=== PATIENT | female | born 1965 | race Caucasian/White ===

== ENCOUNTER 2018-07-17 11:33 | Inpatient (IN) | payer SELFPAY ==
[~2018-07-17] VITALS: Ht 162.6 cm; Wt 50.0 kg
--- NOTE | ~2018-07-17 | EKG ---
[place], [place] ELECTROCARDIOGRAM REPORT NAME: NATI TAMAYO UNIT #: [id number] ROOM: 518 DOCTOR: TELMA DRAFT REPORT BIRTHDATE: [birth year] [facility] Test Date: 2018-07-17 Test Time: 15:16:27 Pat Name: NATI TAMAYO Department: Room: 518 Gender: F Boat Repairer: IGGY : 1965 Requested By: ERIKA TOLENTINO Order Number: [id number] Reading MD: Mariano Abdi MD Measurements Intervals [place] Rate: 49 P: 18 RI: 147 QRS: 17 QRSD: 72 T: 37 QT: 474 QTc: 428 Interpretive Statements Sinus bradycardia Probable left atrial enlargement Electronically Signed On 07-21-2018 4:59:41 PDT by Mariano Abdi MD CM:EKGRPT:ELECTROCARDIOGRAM REPORT [id number] ERIKA HOLLIS DRAFT REPORT ERIKA TOLENTINO MD
--- NOTE | ~2018-07-17 | CON ---
[place], [place] REPORT OF CONSULTATION NAME: NATI TAMAYO UNIT #: [id number] ROOM: 518 DOCTOR: ELIZ CLAROS MD BIRTHDATE: [birth year] DOS: 07/17/2018 HISTORY OF PRESENT ILLNESS: This is a 53-year-old [place] woman with history of anxiety, palpitation, and cocaine abuse, who has never had a heart attack, heart failure, COPD, stroke, cancer, or kidney problems. She does have acid reflux problems. She has had urinary bladder repair, hysterectomy, cholecystectomy, pilonidal cyst surgery, and colon resection. She smokes half a pack of cigarettes per day. She presented to the Emergency Department because of chest pain that began 3 days ago, she woke up with this and since then it has not let up, it waxes and wanes, but it has not let up completely when she walks and this pain is not precipitated by activity nor it is made worse if she has it. The pain does not get worse when she takes a deep breath and it is a kind of tight heavy feeling that has penetrated into the back, but not the neck or the shoulders. She has not had any palpitation, dizziness, or loss of consciousness. No swelling of the legs. FAMILY HISTORY: Negative for coronary artery disease or strokes. HOME MEDICATIONS: Includes multivitamins. PHYSICAL EXAMINATION: GENERAL: This is a patient who is slim, healthy looking, alert, oriented. Complexion is fine. There is no finger clubbing. VITAL SIGNS: Pulse is regular at 80 beats per minute and blood pressure 147/85. NECK: JVP normal. AJR is negative. HEART: There are no murmurs or rubs. Good pedal pulses and no edema in lower extremities. RESPIRATORY: Lungs are clear to auscultation and percussion. There is no chest wall tenderness. ABDOMEN: Supple and nontender. LABORATORY DATA: Three ECGs showed normal sinus rhythm and a normal pattern and troponin I levels are also normal. I looked at the echocardiogram while it was being done and she had chest pain at that time, but no regional wall motion abnormalities were identified. This is highly suggestive of her symptoms being noncardiac. IMPRESSION: This patient has chest pain for 3 days with normal troponin levels, normal ECGs, and normal wall motion on an echocardiogram while she had pain, therefore I concluded that this pain is noncardiac and further cardiac workup is not warranted. I thank you on behalf of Dr. Abdi for this consult. [place], [place] REPORT OF CONSULTATION NAME: NATI TAMAYO UNIT #: [id number] ROOM: [facility] DOCTOR: ELIZ CLAROS MD BIRTHDATE: [birth year] ELIZ CLAROS MD CM:CONSTR:REPORT OF CONSULTATION 1745 07/28/18 0829 interface
--- NOTE | ~2018-07-17 | CON ---
[place], [place] REPORT OF CONSULTATION NAME: [id number] UNIT #: [id number] ROOM: 518 DOCTOR: DWAYNE MERCEDES MD BIRTHDATE: [birth year] DOS: 07/17/2018 GASTROENDOSCOPIC CONSULTATION REPORT HISTORY OF PRESENT ILLNESS: A 53-year-old patient who has presented to the Emergency Room with a history of chest pain and periodically noticing blood in toilet tissue. The patient has had a colonoscopy last year. The patient has been a smoker of a pack of cigarettes per day and caffeinated beverages as well as social alcohol consumption. PAST MEDICAL HISTORY: Associated with anxiety, syncopal episode, palpitations periodically. PAST SURGICAL HISTORY: She has had cholecystectomy and she had accidental perforation of her small bowel that had to be resected. She had hysterectomy and then she got complications with her bladder being nicked and bladder was patched. Also, appendectomy and belly tuck. SOCIAL HISTORY: Social alcohol consumer. Nicotine consumer of pack a day. FAMILY HISTORY: Diabetes, coronary artery disease, and hypertension. ALLERGIES: IVP DYE, SULFA, CLINDAMYCIN, LATEX AND PENICILLIN. REVIEW OF SYSTEMS: HEENT: Denies double vision, blurred vision. RESPIRATORY: Some shortness of breath. CARDIOVASCULAR: Atypical chest pain. DIGESTIVE SYSTEM: No hematemesis; however, blood in the stool, periodically. PHYSICAL EXAMINATION: VITAL SIGNS: Stable, nondistressed patient. HEENT: Head normocephalic, nontraumatic. Eyes: Pupils round, reactive. Sclerae nonicteric. Mouth and buccal mucosa benign. Dentures upper in place. No aphthae ulcer, no thrush. NECK: Supple, no thyromegaly, no cervical lymphadenopathy. CHEST: Symmetric anatomy, equal expansion. No wheeze, no rhonchi at the present time. HEART: Normal sinus rhythm, no gallop, no murmur. ABDOMEN: Soft. No hepato-organomegaly. Bowel sounds present. EXTREMITIES: Dry. No cyanosis, no pedal edema. NEUROLOGIC: Alert, oriented to time, place, person. LABORATORY DATA: Reviewed. CBC at the time of admission, white blood cell 8, H and H of 15 and 43. INR 1.0. Comprehensive metabolic panel, electrolyte balanced, GFR greater than 60. Liver function test normal. Troponin normal. Lipase within normal limits. Lactic acid 0.8, normal. IMPRESSION: Atypical chest pain, most likely secondary to bronchospasm secondary to nicotine or reflux. The patient with periodic blood on the stool [place], [place] REPORT OF CONSULTATION NAME: NATI TAMAYO UNIT #: [id number] ROOM: 518 DOCTOR: MAGO THOMAS,DWAYNE BIRTHDATE: [birth year] when she cleanse. She has had a colonoscopy last year. On rectal examination, there was no evidence of any blood on the stool residues. PLAN AND DISCUSSION: Cardiac diet, Protonix 40 mg daily and supportive management for anxiety. There is no acute distress with this patient at this time. OTHER ADJUNCTIVE DIAGNOSES: As dictated in past medical, surgical history. DWAYNE MERCEDES MD CM:CONSTR:REPORT OF CONSULTATION 06 07/22/18 1711 interface
--- NOTE | ~2018-07-17 | EKG ---
[place], [place] ELECTROCARDIOGRAM REPORT NAME: NATI TAMAYO UNIT #: [id number] ROOM: 518 DOCTOR: TELMA DRAFT REPORT BIRTHDATE: [birth year] [facility] Test Date: 2018-07-17 Test Time: 11:39:36 Pat Name: NATI TAMAYO Department: Room: 518 Gender: F New Car Get Ready Mechanic: MALACHI : 1965 Requested By: ERIKA TOLENTINO Order Number: [id number] Reading MD: Mariano Abdi MD Measurements Intervals [place] Rate: 71 P: 42 AL: 145 QRS: 40 QRSD: 70 T: 47 QT: 412 QTc: 448 Interpretive Statements Sinus rhythm Probable left atrial enlargement Electronically Signed On 07-21-2018 4:59:37 PDT by Mariano Abdi MD CM:EKGRPT:ELECTROCARDIOGRAM REPORT [id number] ERIKA HOLLIS DRAFT REPORT ERIKA TOLENTINO MD
[~2018-07-17 11:33] MED LIST: AMBIEN10 M1 PO; ATIVAN1 MG PO; BLACK COHOSH PO; CIPRODEX 0.3%-7.5 ML OT; CYMBALTA60 MG PO; LAMICTAL100 MG PO; MULTIVITAMIN1 TAB PO; SEROQUEL XR400 MG PO; TYLENOL PM 5001 CA1 PO; VICODIN 5/500 505 MG PO; VITAMIN B12 PO
[2018-07-17 11:35] VITALS: BP 177/101
[2018-07-17 11:59] LABS: BASO % 0.3 % (0.0-1.0); EOS # 0.1 10*3/uL (0.0-0.4); EOS % 1.4 % (1.0-4.0); HEMATOCRIT 43.6 % (37.0-47.0); HEMOGLOBIN 15.1 g/dl (12.0-16.0); LYMPH # 2.8 10*3/uL (1.3-4.4); LYMPH % 32.7 % (27.0-41.0); MEAN CELL VOLUME 90.8 fl (81.0-99.0); MEAN CORPUSCULAR HGB 31.5 pg (27.0-31.0); MEAN CORPUSCULAR HGB CONC 34.6 g/dl (33.0-37.0); MEAN PLATELET VOLUME 8.8 fl (9.6-12.3); MONO # 0.4 10*3/uL (0.1-1.0); MONO % 4.8 % (3.0-9.0); NEUT # 5.2 10*3/uL (2.3-7.9); NEUT % 60.6 % (47.0-73.0); PLATELET COUNT AUTOMATED 290 10*3/uL (130-400); RED CELL DISTRI WIDTH 13.6 % (0-14.5); WHITE BLOOD COUNT 8.6 10*3/uL (4.8-10.8)
[2018-07-17 12:08] LABS: ACT PARTIAL THROMBO TIME 22.7 SECONDS (20.8-31.5)
[2018-07-17 12:15] LABS: ALBUMIN 3.7 gm/dl (3.1-4.5); ALKALINE PHOSPHATASE 94 U/L (45-117); BUN 11 mg/dl (7-24); CHLORIDE 111 mmol/L (98-107); CREATININE 0.72 mg/dL (0.55-1.02); LIPASE 205 U/L (73-393); POTASSIUM 3.5 mmol/L (3.5-5.1); SGOT/AST 11 IU/L (3-35); SGPT/ALT 15 U/L (12-78); SODIUM 141 mmol/L (136-145); TOTAL PROTEIN 7.4 gm/dL (6.4-8.2)
[2018-07-17 12:18] LABS: TROPONIN I < 0.015 ng/ml (<0.045)
[2018-07-17 12:38] VITALS: BP 128/70
[2018-07-17 13:25] VITALS: BP 152/99
[2018-07-17 14:05] VITALS: BP 164/74
[2018-07-17 16:00] VITALS: BP 147/85
[2018-07-17 20:00] VITALS: BP 144/90
[2018-07-18] VITALS: BP 147/88
[2018-07-18 07:06] LABS: BASO % 0.3 % (0.0-1.0); EOS # 0.2 10*3/uL (0.0-0.4); EOS % 2.8 % (1.0-4.0); HEMATOCRIT 44.7 % (37.0-47.0); HEMOGLOBIN 14.9 g/dl (12.0-16.0); LYMPH # 3.4 10*3/uL (1.3-4.4); LYMPH % 42.6 % (27.0-41.0); MEAN CELL VOLUME 92.2 fl (81.0-99.0); MEAN CORPUSCULAR HGB 30.7 pg (27.0-31.0); MEAN CORPUSCULAR HGB CONC 33.3 g/dl (33.0-37.0); MEAN PLATELET VOLUME 8.9 fl (9.6-12.3); MONO # 0.5 10*3/uL (0.1-1.0); MONO % 6.1 % (3.0-9.0); NEUT # 3.8 10*3/uL (2.3-7.9); NEUT % 47.9 % (47.0-73.0); PLATELET COUNT AUTOMATED 283 10*3/uL (130-400); RED BLOOD COUNT 4.85 10*6/uL (4.10-5.10); RED CELL DISTRI WIDTH 13.8 % (0-14.5); WHITE BLOOD COUNT 7.9 10*3/uL (4.8-10.8)
[2018-07-18 07:18] LABS: ALBUMIN 3.7 gm/dl (3.1-4.5); ALKALINE PHOSPHATASE 97 U/L (45-117); BUN 8 mg/dl (7-24); CHLORIDE 109 mmol/L (98-107); CHOLESTEROL 171 mg/dL (<200); CREATININE 0.62 mg/dL (0.55-1.02); FREE T4 1.12 ng/dl (0.76-1.46); HDL CHOLESTEROL 34 mg/dl (40-60); LDL CHOLESTEROL 95 mg/dL (9-159); PHOSPHOROUS 3.7 mg/dL (2.5-4.9); POTASSIUM 3.6 mmol/L (3.5-5.1); SGOT/AST 10 IU/L (3-35); SGPT/ALT 16 U/L (12-78); SODIUM 141 mmol/L (136-145); TRIGLYCERIDES 210 mg/dl (<150); VLDL CHOLESTEROL 42 mg/dL (6-40)
[2018-07-18 07:22] LABS: TOTAL PROTEIN 7.1 gm/dL (6.4-8.2)
[2018-07-18 07:43] LABS: ACT PARTIAL THROMBO TIME 23.6 SECONDS (20.8-31.5)
[2018-07-18 08:00] VITALS: BP 137/78
[2018-07-18 08:13] LABS: VITAMIN D, 25-HYDROXY 13.9 ng/mL (30-100)
[2018-07-18 12:00] VITALS: BP 117/76
[2018-07-18] MEDS ORDERED: OMEPRAZOLE40 MG PO (15:52)
[2018-07-18] MEDS ORDERED: NICODERM CQ1 EAC2 T (15:52)
[2018-07-18 16:00] VITALS: BP 158/91
== END 2018-07-18 16:35 | disposition home or self-care (01) | DRG 313 ==
LOC: ED 11:33 → 5E 12:27 → EDHOLD 12:27 → 5E 12:35
PROVIDERS: Emergency Medicine; Registered Nurse
DX: R07.89 Other chest pain (principal); K62.5 Hemorrhage of anus and rectum; Z68.1 Body mass index [BMI] 19.9 or less, adult; R55 Syncope and collapse; R42 Dizziness and giddiness; R63.4 Abnormal weight loss; E78.1 Pure hyperglyceridemia; R73.9 Hyperglycemia, unspecified; F17.210 Nicotine dependence, cigarettes, uncomplicated; F41.9 Anxiety disorder, unspecified; R10.9 Unspecified abdominal pain; Z88.1 Allergy status to other antibiotic agents; Z91.041 Radiographic dye allergy status; Z88.0 Allergy status to penicillin; Z88.2 Allergy status to sulfonamides; Z91.048 Other nonmedicinal substance allergy status; Z90.710 Acquired absence of both cervix and uterus; Z90.49 Acquired absence of other specified parts of digestive tract; Z82.49 Family history of ischemic heart disease and other diseases of the circulatory system; Z83.3 Family history of diabetes mellitus; Z71.6 Tobacco abuse counseling

== ENCOUNTER → 2019-04-16 | Outpatient (CLI) | payer OTHER ==
[~2019-04-16] MED LIST changes: +NICODERM CQ1 EAC2 T; +OMEPRAZOLE40 MG PO
== END | disposition home or self-care (01) ==
LOC: CT 14:46
DX: R10.9 Unspecified abdominal pain (principal); Z90.49 Acquired absence of other specified parts of digestive tract

== ENCOUNTER 2021-11-19 17:46 | Emergency (ER) | payer SELFPAY | END 2021-11-19 18:00 | disposition left against medical advice (07) | LOC: ED 17:46 | DX: M54.9 Dorsalgia, unspecified (principal); R50.9 Fever, unspecified; Z53.21 Procedure and treatment not carried out due to patient leaving prior to being seen by health care provider ==

== ENCOUNTER 2022-08-05 12:44 | Emergency (ER) | payer SELFPAY ==
[~2022-08-05] VITALS: Ht 160 cm; Wt 49.9 kg
[2022-08-05 13:05] LABS: BASO % 0.3 % (0.0-1.0); EOS # 0.2 10*3/uL (0.0-0.4); EOS % 1.7 % (1.0-4.0); HEMATOCRIT 45.6 % (37.0-47.0); LYMPH % 31.9 % (27.0-41.0); MEAN CELL VOLUME 92.1 fl (81.0-99.0); MEAN CORPUSCULAR HGB 32.7 pg (27.0-31.0); MEAN CORPUSCULAR HGB CONC 35.5 g/dl (33.0-37.0); MEAN PLATELET VOLUME 8.3 fl (9.6-12.3); MONO # 0.7 10*3/uL (0.1-1.0); NEUT # 5.5 10*3/uL (2.3-7.9); NEUT % 58.9 % (47.0-73.0); PLATELET COUNT AUTOMATED 349 10*3/uL (130-400); RED BLOOD COUNT 4.95 10*6/uL (4.10-5.10); RED CELL DISTRI WIDTH 12.4 % (0-14.5); WHITE BLOOD COUNT 9.3 10*3/uL (4.8-10.8)
[2022-08-05 13:16] LABS: ACT PARTIAL THROMBO TIME 26.6 SECONDS (20.0-32.1)
[2022-08-05 13:33] LABS: ALKALINE PHOSPHATASE 109 U/L (45-117); BUN 6 mg/dl (7-24); CHLORIDE 105 mmol/L (98-107); CREATININE 0.84 mg/dL (0.55-1.02); POTASSIUM 3.2 mmol/L (3.5-5.1); SGOT/AST 11 IU/L (3-35); SGPT/ALT 20 U/L (12-78); SODIUM 139 mmol/L (136-145)
[2022-08-05] MEDS ORDERED: LISINOPRIL10 M1 PO (15:31)
== END 2022-08-05 15:33 | disposition home or self-care (01) ==
LOC: ED 12:44
PROVIDERS: Emergency Medicine
DX: R07.9 Chest pain, unspecified (principal); Z88.2 Allergy status to sulfonamides; Z88.0 Allergy status to penicillin; Z88.1 Allergy status to other antibiotic agents; Z91.041 Radiographic dye allergy status; Z91.040 Latex allergy status; Z90.710 Acquired absence of both cervix and uterus; Z90.49 Acquired absence of other specified parts of digestive tract; Z98.890 Other specified postprocedural states; F17.200 Nicotine dependence, unspecified, uncomplicated